=== PATIENT | female | born 1985 | race Caucasian/White ===

== ENCOUNTER → 2020-10-24 08:12 | Outpatient (BNVA) | payer BC, SELFPAY | PROVIDERS: Visit Provider Nurse Practitioner Family | DX: Z76.89 Persons encountering health services in other specified circumstances (principal) ==

== ENCOUNTER 2020-11-23 10:16 | Outpatient (REF) | payer BC, SELFPAY ==
--- NOTE | 2020-11-23 | US_ITS ---
EXAMINATION: US THYROID CLINICAL INFORMATION: Nontoxic multinodular goiter. COMPARISON: Ultrasound soft tissue head/neck thyroid dated 08/10/2019. TECHNIQUE: Linear transducer figueroa-scale and color Doppler examination with attention to the region of the thyroid. FINDINGS: SIZE: Measurements of the thyroid lobes and nodules are given in sagittal, anteroposterior and transverse dimensions respectively. Right Thyroid Lobe: 5.5 x 2.3 x 1.4 cm, volume 9.3 mL. Previously 5.5 x 2.1 x 1.7 cm, volume 10.5 mL. Parenchyma: The gland echotexture is heterogeneous. Thyroid vascularity is normal. Left Thyroid Lobe: 4.6 x 2.0 x 1.8 cm, volume 8.9 mL. Previously 4.9 x 1.8 x 1.6 cm, volume 7.3 mL. Parenchyma: The gland echotexture is heterogeneous. Thyroid vascularity is normal. Isthmus: 0.7 cm in maximum AP dimension. Previously 0.5 cm. RIGHT THYROID LOBE: There is 1 nodule seen. 1. Location: Superior. Size: 0.5 x 0.2 x 0.3 cm. Previous: 0.7 x 0.2 x 0.4 cm. Nodule characteristics: Heterogeneous, smoothly marginated with no intranodular flow. ISTHMUS: There is 1 nodule seen. 1. Location: Upper isthmus. Size: 0.8 x 0.5 x 0.7 cm. Previous: Not seen on the previous study. Nodule characteristics: Heterogeneous, smoothly marginated with peripheral vascular flow. LEFT THYROID LOBE: There are 2 nodules seen. 1. Location: Middle. Size: 0.8 x 0.6 x 0.8 cm. Previous: 0.7 x 0.5 x 0.5 cm. Nodule characteristics: Heterogeneous, smoothly marginated with peripheral flow. 2. Location: Inferior. Size: 0.8 x 0.7 x 0.5 cm. Previous: Not seen on the previous study. Nodule characteristics: Hyperechoic, hypoechoic rind with no intranodular flow. NODES: No lymphadenopathy is seen in the tissue surrounding the thyroid gland. US/US thyroid IMPRESSION: Multinodular enlarged thyroid gland. Recommend follow up as per [facility] guidelines.
[2020-11-23 13:55] LABS: MANUAL DIFF FLAG NO
[2020-11-23 13:58] LABS: Basophils Absolute Auto 0.1 X10*3/uL (0.0-0.2); Basophils Percent Auto 0.5 % (0-2); Eosinophils Absolute Auto 0.5 X10*3/uL (0.0-0.4); Hematocrit 39.9 % (37-47); Hemoglobin 12.5 g/dl (12.0-16.0); Imm Gran Abs Auto 0.05 X10*3/uL (0.00-0.03); Imm Gran Pct Auto 0.4 % (0.0-0.4); Lymphocytes Absolute Auto 2.9 X10*3/uL (1.2-4.9); Lymphocytes Percent Auto 24.9 % (20-40); Mean Corpuscular HGB Conc 31.3 g/dl (31.0-35.0); Mean Corpuscular Hemoglobin 26.3 pg (27.0-33.0); Mean Corpuscular Volume 83.8 fL (80-98); Mean Platelet Volume 10.4 fL (9.4-12.3); Monocytes Absolute Auto 1.3 X10*3/uL (0.1-1.2); Neutrophils Percent Auto 59.2 % (45-73); Platelet Count 429 X10*3/uL (160-400); Red Blood Count 4.76 X10*6/uL (4.20-5.50); Red Cell Distribution Width 13.4 % (11.0-16.0); White Blood Count 11.8 X10*3/uL (4.8-10.8)
[2020-11-23 14:21] LABS: Anion Gap 11 (12-20); Blood Urea Nitrogen 14 mg/dL (9-16); Calcium 9.1 mg/dL (8.4-10.2); Carbon Dioxide 28 mmol/L (22-29); Chloride 102 mmol/L (96-108); Estimated Glomerular Filt Rate > 60; Glucose Random 93 mg/dL (60-115); Potassium 4.4 mmol/l (3.3-5.1); Sodium 137 mmol/L (135-145)
[2020-11-23 14:44] LABS: Ferritin 32 ng/mL (10-122)
[2020-11-24 06:43] LABS: LDL Cholesterol Direct 91 mg/dL (<100)
== END 2020-11-23 10:17 | disposition home or self-care (01) ==
LOC: HO.HMGCX 10:16
PROVIDERS: PCP Internal Medicine; Visit Provider Internal Medicine Endocrinology, Diabetes & Metabolism
DX: E04.2 Nontoxic multinodular goiter (principal); I10 Essential (primary) hypertension; K21.9 Gastro-esophageal reflux disease without esophagitis; E61.1 Iron deficiency; G47.33 Obstructive sleep apnea (adult) (pediatric); Z99.89 Dependence on other enabling machines and devices
CPT/HCPCS: 36415; 76536; 80048; 82728; 83721; 85025

== ENCOUNTER → 2020-12-25 07:39 | Outpatient (BNVA) | payer BC, SELFPAY | PROVIDERS: PCP Internal Medicine; Visit Provider Internal Medicine Endocrinology, Diabetes & Metabolism ==

== ENCOUNTER 2021-06-08 09:39 | Outpatient (REF) | payer BC, SELFPAY ==
[2021-06-08 12:24] LABS: Free T4 (Free Thyroxine) 0.96 ng/dL (0.71-1.85)
== END 2021-06-08 09:40 | disposition home or self-care (01) ==
LOC: HO.HMGCLDS 09:39
PROVIDERS: Visit Provider Internal Medicine Endocrinology, Diabetes & Metabolism
DX: E04.2 Nontoxic multinodular goiter (principal); E06.3 Autoimmune thyroiditis
CPT/HCPCS: 36415; 84439; 84443